=== PATIENT | female | born 1995 | race Caucasian/White ===

== ENCOUNTER 2017-05-27 21:45 | Emergency (ER) | payer SELFPAY ==
--- NOTE | ~2017-05-27 | US98 ---
[facility] A Service of [facility] & [facility] RADIOLOGY TEXT RESULTS PATIENT: OLAF CAMARILLO LOCATION: SED : [birth year] UNIT #: [id number] AGE: [address]: Pilar Christianson MD SEX: F ORDER DR: [id number] [address] [address] [id number] E MR#: [id number] Acc #: [id number] NAME: OLAF CAMARILLO : 1995 SEX: F STUDY DATE/TIME: 05/27/2017 23:56 UNIT: SED ROOM: STUDY DESCRIPTION: US Pelvic Non-OB Complete Attending Physician: Pilar Christianson M.D. Referring Physician: Pilar Christianson M.D. Ordering Physician: Pilar Christianson M.D. [facility] REPORT This report is preliminary unless electronic signature is present. EXAM Pelvic ultrasound. INDICATION Right lower quadrant abdominal pain for 4 hours. Right ovarian cyst. COMPARISON CT of the abdomen and pelvis, 05/27/2017. FINDINGS The uterus measures 7.4 x 3.8 x 4.7 cm. The endometrial stripe measures 5 mm. The endometrium is homogeneous. Myometrium is homogeneous. The right ovary is enlarged due to a simple follicular cyst measuring up to 5.4 cm. There is color-Doppler flow within the periphery of the ovary. The left ovary measures 2.5 x 1.7 x 2.3 cm. There is normal color Doppler flow. No adnexal mass. There is a small volume of free fluid. IMPRESSION 1. 5.4 cm follicular cyst in the right ovary. 2. The majority of the ovary is replaced by the cyst, however, the normal parenchyma does have color Doppler flow. 3. Small volume of fluid the pelvis. Dictated by... Pedrito Sen M.D. THIS IS AN ELECTRONICALLY VERIFIED REPORT Pedrito Sen M.D. at 05/28/2017 10:47 PM RITESH/shadi TD: 05/28/2017 17:59 [facility] A Service of [facility] & [facility] RADIOLOGY TEXT RESULTS PATIENT: OLAF CAMARILLO LOCATION: [facility] : [birth year] UNIT #: [id number] AGE: [address]: Pilar Christianson MD SEX: F ORDER DR: JOÃO #: [id number] MEDICAL IMAGING REPORT Page 1 of 1
--- NOTE | ~2017-05-27 | CT4 ---
[facility] A Service of [facility] RADIOLOGY TEXT RESULTS PATIENT: OLAF CAMARILLO LOCATION: SED : [birth year] UNIT #: [id number] AGE: [address]: Pilar Christianson MD SEX: F ORDER DR: [id number] [address] [address] [id number] E MR#: [id number] Acc #: [id number] NAME: OLAF CAMARILLO : 1995 SEX: F STUDY DATE/TIME: 05/27/2017 23:06 UNIT: SED ROOM: STUDY DESCRIPTION: CT Abd and Pelv Wo Cont Attending Physician: Pilar Christianson M.D. Referring Physician: Pilar Christianson M.D. Ordering Physician: Pilar Christianson M.D. [facility] REPORT This report is preliminary unless electronic signature is present. EXAM CT abdomen and pelvis. INDICATIONS Diarrhea for 1 day. Right lower quadrant abdominal pain. TECHNIQUE CT abdomen and pelvis without contrast. Coronal and sagittal reconstructions were obtained. This CT exam was performed with one or more of the following radiation dose reduction techniques: automatic exposure control, adjustment of mA and/or kV according to patient size, and iterative reconstruction. COMPARISON CT of the abdomen and pelvis dated 08/20/2016. FINDINGS ABDOMEN: No urinary calculi. No hydronephrosis. Noncontrast evaluation of the remaining solid abdominal organs are unremarkable. The gallbladder is not distended. Small bowel is not dilated. The appendix is normal. PELVIS: There is a right ovarian follicular cyst measuring 5.4 cm. Patient had previously had a follicular cyst in the right ovary measuring 5.2 cm in August 14, 2016. Left ovary is unremarkable. No enlarged pelvic or inguinal lymph nodes. No acute osseous abnormalities. IMPRESSION 1. 5.4 cm right ovarian follicular cyst. 2. Otherwise no acute findings. Normal appendix. [facility] A Service of [facility] RADIOLOGY TEXT RESULTS PATIENT: OLAF CAMARILLOTH [place] [facility] [place] [birth year] UNIT #: [id number] AGE: [address]: Pilar Christianson MD SEX: F ORDER DR: Dictated by... Pedrito Sen M.D. THIS IS AN ELECTRONICALLY VERIFIED REPORT Pedrito Sen M.D. at 05/28/2017 10:50 PM RITESH/shadi TD: 05/28/2017 17:01 JOB #: [id number] MEDICAL IMAGING REPORT Page 1 of 1
[~2017-05-27 21:45] MED LIST: ALBUTEROL17 GM INH; AMOXICILLIN PO; AMOXICILLIN875 MG PO; BACITRACIN15 GM OINT EXT; BACTRIM DS TABL1 TA1 PO; BENTYL20 MG PO; BENZONATATE PO; BIRTH CONTROL PILL; CIPRO; DECADRON 4 MG PO; DIFLUCAN PO; FLUOXETINE HCL20 M1 PO; IBUPROFEN PO; IBUPROFEN25 GM PO; IBUPROFEN800 MG PO; KEFLEX500 M1 PO; MAGIC MOUTHWASH PO; MOTRIN400 M1 PO; MOTRIN600 M1 PO; MOTRIN600 M2 PO; NAPROSYN PO; NO MEDICATIONS; OMEPRAZOLE10 M1; OMEPRAZOLE20 M1 PO; OMEPRAZOLE40 MG; PENICILLIN; PHENERGAN25 M1 PO; PREDNISONE PO; PRENATAL1 TA1 PO; PRILOSEC PO; PYRIDIUM PO; TOPAMAX PO; TOPAMAX50 MG PO; TYLENOL #3 PO; VIBRAMYCIN100 M1 PO; VICODIN 5/1 TAB 5/50 PO; VOLTAREN50 MG PO; VOLTAREN75 MG PO; ZOFRAN ODT4 MG PO; ZOFRAN PO
[2017-05-27 22:30] LABS: URINE SOURCE CLEAN CATCH
[2017-05-27 22:37] LABS: BASOPHIL# 0.1 X10e3 (0-0.3); BASOPHIL% 0.7 % (0-2.5); EOSINOPHIL% 0.4 % (0.0-7.0); HEMATOCRIT 41.1 % (35.0-45.0); HEMOGLOBIN 13.4 gm/dL (12.0-16.0); LYMPHOCYTE# 2.1 X10e3 (1.0-3.5); LYMPHOCYTE% 22.2 % (17.0-45.0); MEAN CORPUSCULAR HEMOGLOBIN 27.5 PG (28-34); MEAN CORPUSCULAR HGB CONC 32.7 g/dL (30-36); MEAN PLATELET VOLUME 8.3 FL (6.5-11.5); MONOCYTE# 0.5 X10e3 (0-1.0); MONOCYTE% 5.5 % (3.0-12.0); NEUTROPHIL# 6.7 X10e3 (1.5-7.1); NEUTROPHIL% 71.2 % (40-75); PLATELET COUNT 351 X10e3 (140-420); RED BLOOD COUNT 4.89 X10e (3.90-5.30); RED CELL DISTRIBUTION WIDTH 14.6 % (11.0-15.5); WHITE BLOOD COUNT 9.4 X10e3 (4.0-10.5)
[2017-05-27 22:45] LABS: DIFF IND NO; MICRO INDICATED? NO; URINE APPEARANCE CLEAR; URINE BILIRUBIN NEG (NEG); URINE BLOOD NEG (NEG); URINE COLOR ORANGE; URINE GLUCOSE NEG (NORM); URINE KETONE NEG (NEG); URINE LEUKOCYTE ESTERASE NEG (NEG); URINE NITRATE NEG (NEG); URINE PROTEIN NEG (NEG); URINE UROBILINOGEN 0.2 MG/DL (NORM)
[2017-05-27 23:00] LABS: ALBUMIN SERUM 4.3 g/dL (3.5-5.0); ALKALINE PHOSPHATASE 70 U/L (32-92); ALT (SGPT) 24 U/L (10-40); AMYLASE 18 U/L (0-46); AST (SGOT) 22 U/L (10-42); BILIRUBIN,TOTAL 0.3 mg/dL (0.2-2.0); BLOOD UREA NITROGEN 13 mg/dL (9-23); BUN/CREATININE RATIO 21.66; CALCIUM SERUM 9.1 mg/dL (8.4-10.2); CARBON DIOXIDE 24 mmol/L (22-31); CHLORIDE 103 mmol/L (100-111); CREATININE SERUM 0.6 mg/dL (0.6-1.4); GLOM FILT RATE Estimated 128.5 mL/min (>60); GLUCOSE FASTING 91 mg/dL (70-110); LIPASE 31 U/L (22-51); POTASSIUM 3.9 mmol/L (3.5-5.1); PROTEIN TOTAL SERUM 7.3 g/dL (6.0-8.3); SODIUM 134 mmol/L (135-145)
[2017-05-27 23:12] LABS: BILIRUBIN, DIRECT <0.1 mg/dL (0.0-0.2); BILIRUBIN,INDIRECT 0.2 mg/dL (0.0-0.9)
[2017-05-31 13:27] LABS: CHLAMYDIA TRACH Not Detected (Not Detected); N GONOR Not Detected (Not Detected)
== END 2017-05-28 00:52 | disposition home or self-care (01) ==
LOC: SED 21:45
PROVIDERS: Student in an Organized Health Care Education/Training Program
DX: N76.0 Acute vaginitis (principal); F17.200 Nicotine dependence, unspecified, uncomplicated
CPT/HCPCS: 36415; 74176; 76830; 76856; 80048; 80076; 81003; 82150; 83690; 84703; 85025; 87491; 87591; 87808; 87905; 96361; 96374; 96375; 99284; J2270; J2405